=== PATIENT | male | born 1935 | race Caucasian/White ===

== ENCOUNTER 2016-10-02 18:10 | Observation (INO) ==
[2016-10-02 19:24] LABS: Basophils % 0.2 %; Eosinophils % 0.2 %; Hematocrit 30.4 % (37.5-50.1); Hemoglobin 9.9 g/dL (12.9-16.9); Immature Granulocytes % 0.4 % (0-4); Lymphocytes % 9.2 %; Mean Corpuscular HGB Conc 32.6 g/dL (31.6-35.5); Mean Corpuscular Volume 86.1 fL (83.0-100.0); Mean Platelet Volume 10.7 fL (9.4-12.4); Monocytes # 0.9 K/mcL (0.0-1.3); Monocytes % 8.4 %; Neutrophils # 9.1 K/mcL (1.6-8.9); Platelet Count 187 K/mcL (140-400); Red Blood Count 3.53 M/mcL (4.19-5.50); Red Cell Distribution Width 13.1 % (11.5-14.5); Segmented Neutrophils % 81.6 %
[2016-10-02 19:26] LABS: INR 1.2; Prothrombin Time 13.4 Seconds (9.4-12.1)
[2016-10-02 19:28] LABS: Activated Partial Thrombo Time 32.2 Seconds (26.0-36.0)
[2016-10-02 19:31] LABS: Calcium 8.9 mg/dL (8.6-10.8); Potassium 4.6 mEq/L (3.5-4.5)
--- NOTE | 2016-10-02 20:11 | Emergency Department Note ---
Disposition Clinical Impression: Atrial flutter, paroxysmal Dyspnea Qualifiers: Dyspnea type: unspecified Qualified Code(s): R06.00 - Dyspnea, unspecified CHF (congestive heart failure) Qualifiers: Congestive heart failure type: unspecified congestive heart failure type Congestive heart failure chronicity: unspecified congestive heart failure chronicity Qualified Code(s): I50.9 - Heart failure, unspecified Disposition: Admitted As Inpatient Condition: Good Referrals: Jamie Glynn MD [Primary Care Provider] - Forms: ED Satisfaction Letter SOB HPI - General Chief Complaint: ED Shortness of Breath/Dyspnea Stated Complaint: MUNA Time Seen by Provider: 10/02/16 18:57 Source: patient Limitations: no limitations Nursing Notes Reviewed: Yes Vital Signs Reviewed: Yes - History of Present Illness Pt Subjective Complaint: shortness of breath Onset (ago): hour(s) (10) Context: occurred during exertion Severity: moderate Consistency/Duration: intermittent Improves with: rest Worsens with: exertion Known history of: other (Paroxysmal atrial flutter and coronary artery disease) Associated symptoms: Denies: chest pain, fever, cough, lower extremity pain, nausea/vomiting Treatment prior to arrival: none Cough present: No - Related Data Home Medications Medication Instructions Recorded Confirmed Cholecalciferol (D-3) [Vitamin D] 1,000 unit PO DAILY 03/03/16 03/04/16 Cyanocobalamin (Vitamin B-12) 1,000 mcg PO DAILY 03/03/16 03/04/16 [Vitamin B-12] Losartan Potassium [Cozaar] 100 mg PO DAILY 03/03/16 03/04/16 Metoprolol [Lopressor] 100 mg PO BID 03/03/16 03/04/16 Multivitamin [Multi-Day Vitamins] 1 each PO DAILY 03/03/16 03/04/16 Metformin HCl [Metformin HCl ER] 1,000 mg PO BIDWM 03/04/16 03/04/16 amLODIPine [Norvasc] 5 mg PO DAILY 03/04/16 03/04/16 Previous Rx's Medication Instructions Recorded Aspirin 81 mg PO DAILY #30 tab.chew 03/07/16 Atorvastatin [Lipitor] 40 mg PO HS #30 tablet 03/07/16 Allergies Allergy/AdvReac Type Severity Reaction Status Date / Time No Known Allergies Allergy Verified 10/02/16 18:23 All systems ED: reviewed and negative except as stated. Constitutional: Denies: fever, chills Cardiovascular: Denies: orthopnea, edema, syncope Past Medical History - Past Medical History Source: patient, old records reviewed, nursing notes reviewed Medical history: Reports: coronary artery disease, diabetes, hyperlipidemia, hypertension, kidney stones, renal disease Surgical history: Reports: coronary bypass (CABG) (1997), orthopedic, other ( Cervical fusion status post trauma) Psychiatric history: Reports: no psych history - Social History Smoking Status: Never smoker Alcohol use: Reports: none Drug use: Reports: none Physical Exam - General Limitations: no limitations General appearance: alert, in no apparent distress - Head Head exam: atraumatic, normocephalic, normal inspection - Eye Eye exam: Present: normal appearance, PERRL, EOMI - Expanded Eye Exam Pupils: Left: reactive - ENT ENT exam: normal exam, normal oropharynx, mucous membranes moist - Expanded ENT Exam External ear exam: Present: normal external inspection Mouth exam: Present: normal external inspection Teeth exam: Present: normal inspection Throat exam: Present: normal inspection - Neck Neck exam: Present: normal inspection, full ROM, trachea midline - Chest Chest inspection: Present: normal inspection, symmetric chest wall rise - Respiratory Respiratory exam: Present: normal lung sounds bilaterally - Cardiovascular Cardiovascular exam: Present: regular rate, normal rhythm, normal heart sounds - Abdominal Exam Abdominal exam: Present: soft, Non-Tender. Absent: tenderness, distention, guarding, rebound, rigidity - Extremities Exam Extremities exam: Present: normal inspection, full ROM. Absent: tenderness, pedal edema - Expanded Upper Extremity Exam Shoulder exam: Present: normal inspection, full ROM Arm exam: Present: normal inspection, full ROM Elbow exam: Present: normal inspection, full ROM Forearm/Wrist exam: Present: normal inspection, full ROM Hand exam: Present: normal inspection, full ROM Vascular exam: Normal: capillary refill, radial pulse - Expanded Lower Extremity Exam Hip/Pelvis exam: Present: normal inspection, full ROM Upper leg exam: Present: normal inspection, full ROM Knee exam: Present: normal inspection, full ROM Lower leg exam: Present: normal inspection, full ROM Ankle exam: Present: normal inspection, full ROM Foot/toe exam: Present: normal inspection, full ROM Neurovascular/Tendon exam: Absent: motor deficit, sensory deficit, tendon deficit - Back Exam Back exam: Present: normal inspection, full ROM. Absent: tenderness - Neurological Exam Neurological exam: Present: alert, oriented X3 - Expanded Neurological Exam Patient oriented to: Present: person, place, time Coma Scale Eye Opening: Spontaneous Coma Scale Motor Response: Obeys Commands Coma Scale Verbal Response: Oriented Coma Scale Total: 15 - Psychiatric Psychiatric exam: Present: normal affect, normal mood - Skin Skin exam: Present: warm, dry, intact, normal color Course Vital Signs Temperature 98.4 F 10/02/16 18:21 Pulse Rate 80 10/02/16 18:21 Respiratory Rate 18 10/02/16 18:21 Blood Pressure 190/79 10/02/16 18:21 O2 Sat by Pulse Oximetry 94 10/02/16 18:21 Temperature 98.4 F 10/02/16 18:21 Pulse Rate 76 10/02/16 19:33 Respiratory Rate 18 10/02/16 18:21 Blood Pressure 168/70 10/02/16 19:33 O2 Sat by Pulse Oximetry 96 10/02/16 19:33 Oxygen Delivery Oxygen Delivery Room Air Shortness of Breath/Dyspnea - [facility] Narrative Medical decision making narrative: She is asymptomatic and is not hypoxic at rest speaks in full sentences. I reviewed all of his old records he does have a history of moderate severe pulmonary hypertension, BNP is elevated chest x-ray shows some mild pulmonary congestion. He has a mildly elevated d-dimer for his age but no signs of lower extremity DVT no recent travel history surgical history or prolonged immobilization. He also does not have a prior history of DVT. Will be admitted to the hospital service for further workup we did give him an aspirin in the ER. - Differential Diagnosis Likely: congestive heart failure, pneumonia, asthma with exacerbation, pneumothorax, arrhythmia - Lab Data Result diagrams: 10/02/16 19:11 10/02/16 19:11 Lab Results 10/02/16 10/02/16 10/02/16 Range/Units 19:11 19:11 19:11 WBC 11.1 (4.3-11.1) K/mcL RBC 3.53 L (4.19-5.50) M/mcL Hgb 9.9 L (12.9-16.9) g/dL Hct 30.4 L (37.5-50.1) % MCV 86.1 (83.0-100.0) fL MCH 28.0 (28.0-33.3) pg MCHC 32.6 (31.6-35.5) g/dL RDW 13.1 (11.5-14.5) % Plt Count 187 (140-400) K/mcL MPV 10.7 (9.4-12.4) fL Immature Gran % 0.4 (0-4) % Seg Neutrophils % 81.6 % Lymphocytes % 9.2 % Monocytes % 8.4 % Eosinophils % 0.2 % Basophils % 0.2 % Neutrophils # 9.1 H (1.6-8.9) K/mcL Lymphocytes # 1.0 (0.6-4.6) K/mcL Monocytes # 0.9 (0.0-1.3) K/mcL Eosinophils # 0.0 (0.0-0.6) K/mcL Basophils # 0.0 (0.0-0.2) K/mcL PT 13.4 H (9.4-12.1) Seconds INR 1.2 APTT 32.2 (26.0-36.0) Seconds D-Dimer 1006 H (0-500) ng/mLFEU Sodium 141 (136-145) mEq/L Potassium 4.6 H (3.5-4.5) mEq/L Chloride 111 H (98-109) mEq/L Carbon Dioxide 19 (19-29) mEq/L BUN 33 H (8-26) mg/dL Creatinine 2.07 H (0.72-1.25) mg/dL Est GFR ( Amer) 37 L (> 60) Est GFR (Non-Af Amer) 31 L (> 60) BUN/Creatinine Ratio 16 (6-26) Glucose 179 H (70-99) mg/dL Calculated Osmolality 304 H (280-300) Calcium 8.9 (8.6-10.8) mg/dL Troponin I (0-0.03) ng/mL B-Natriuretic Peptide (0-100) pg/mL 10/02/16 10/02/16 Range/Units 19:11 19:11 WBC (4.3-11.1) K/mcL RBC (4.19-5.50) M/mcL Hgb (12.9-16.9) g/dL Hct (37.5-50.1) % MCV (83.0-100.0) fL MCH (28.0-33.3) pg MCHC (31.6-35.5) g/dL RDW (11.5-14.5) % Plt Count (140-400) K/mcL MPV (9.4-12.4) fL Immature Gran % (0-4) % Seg Neutrophils % % Lymphocytes % % Monocytes % % Eosinophils % % Basophils % % Neutrophils # (1.6-8.9) K/mcL Lymphocytes # (0.6-4.6) K/mcL Monocytes # (0.0-1.3) K/mcL Eosinophils # (0.0-0.6) K/mcL Basophils # (0.0-0.2) K/mcL PT (9.4-12.1) Seconds INR APTT (26.0-36.0) Seconds D-Dimer (0-500) ng/mLFEU Sodium (136-145) mEq/L Potassium (3.5-4.5) mEq/L Chloride (98-109) mEq/L Carbon Dioxide (19-29) mEq/L BUN (8-26) mg/dL Creatinine (0.72-1.25) mg/dL Est GFR ( Amer) (> 60) Est GFR (Non-Af Amer) (> 60) BUN/Creatinine Ratio (6-26) Glucose (70-99) mg/dL Calculated Osmolality (280-300) Calcium (8.6-10.8) mg/dL Troponin I 0.02 (0-0.03) ng/mL B-Natriuretic Peptide 510 H (0-100) pg/mL - Radiology Data Radiology results reviewed: Yes I reviewed the patient's radiology results. - EKG Data EKG attestation: Yes I reviewed and interpreted this EKG. Rate: Reports: normal Rhythm: Reports: A. flutter [place]/QRS: Reports: normal Interpretation: Reports: nonspecific ST-T wave changes
[2016-10-02] MEDS ORDERED: Aspirin 81 MG TAB.CHEW PO ONE (20:24)
--- NOTE | 2016-10-03 02:25 | Internal Med History&Physical ---
Date of Encounter: 10/03/16 Time of Encounter: 01:00 Assessment and Plan (1) Atrial flutter, paroxysmal Current visit: Yes Status: Acute Pt possibly had episode of rapid ventricular response prior to this presentation. TSH was normal in february 2016. CHADS2 score is 4 and I think pt would benifit from chronic anticoagulation to prevent strokes. Will consult rules examiner for further advice. Cardiac monitoring. (2) CHF (congestive heart failure) Current visit: Yes Status: Acute BNP is elevated (Pt has CKD). Treat with IV lasix Qualifiers: Congestive heart failure type: diastolic Congestive heart failure chronicity: acute Qualified Code(s): I50.31 - Acute diastolic (congestive) heart failure (3) CAD (coronary artery disease) Current visit: Yes Status: Chronic Continue home medications Qualifiers: Coronary Disease-Associated Artery/Lesion type: [place] artery [place] vs. transplanted heart: [place] heart Associated angina: without angina Qualified Code(s): I25.10 - Atherosclerotic heart disease of [place] coronary artery without angina pectoris (4) CKD (chronic kidney disease) stage 3, GFR 30-59 ml/min Current visit: Yes Status: Chronic Monitor renal function (5) Diabetes mellitus Current visit: Yes Status: Chronic D/C metformin. Start sliding scale insulin Qualifiers: Diabetes mellitus type: type 2 Diabetes mellitus complication status: with kidney complications Diabetes mellitus complication detail: with chronic kidney disease Diabetes mellitus vermin exterminator insulin use: without assisted use Chronic kidney disease stage: stage 3 (moderate) Qualified Code(s): E11.22 - Type 2 diabetes mellitus with diabetic chronic kidney disease; N18.3 - Chronic kidney disease, stage 3 (moderate) (6) Normocytic anemia Current visit: Yes Status: Chronic Recent iron studies were suggestive of anemia of chronic disease. H&H stable. Check fecal occult blood. Monitor Internal Medicine - H&P: HPI Chief complaint: Shortness of breath Admitted From: Emergency Dept Plans for Post Hospital Care: Home History of present illness: Mr. Romeo is a 81 year old male with history of paroxysmal atrial flutter not on any anticoagulation (anticoagulation was considered, pending anemia work-up) , coronary artery disease status post CABG about 20 years ago; Echocardiogram done in February 2016 showed LVEF of 60-65%; atypical septal motion consistent with postoperative status; moderate to severe pulmonary hypertension. He presents to the emergency department, with history of sudden onset heart fluttering / palpitations (his could not count the pulse and apparently BP was also high), associated with shortness of breath. He denies consuming caffeine, smoking or alcohol use. He denies chest pain, cough/expectoration, abdominal pain, dysuria, hematuria, bowel problems, fever, chills. He was evaluated in the emergency department and the chest x-ray showed pulmonary vascular congestion and EKG showed atrial flutter. He is admitted to the hospitalist service for further workup and management. Past Med Surg Social Fam HX - Past Medical History Medical history: coronary artery disease, diabetes, hyperlipidemia, hypertension , kidney stones, renal disease Psychiatric history: no psych history - Past Surgical History Surgical History: coronary bypass (CABG), orthopedic, other - Social History Smoking Status: Never smoker Alcohol use: none Drug use: none - Family History Mother Living Status: Hx Family Endocrine Disorder: Yes (Diabetes) Brother Hx Family Cardiac Disorders: Yes (5 open heart surgeries) Internal Medicine - H&P: Meds Losartan Potassium [Cozaar] 100 mg PO DAILY 03/03/16 [History] Metoprolol [Lopressor] 100 mg PO BID 03/03/16 [History] Metformin HCl [Metformin HCl ER] 1,000 mg PO BIDWM 03/04/16 [History] amLODIPine [Norvasc] 5 mg PO DAILY 03/04/16 [History] Atorvastatin [Lipitor] 40 mg PO HS #30 tablet 03/07/16 [Rx] ALPRAZolam [Xanax 0.25 MG Tablet] 0.25 mg PO HS PRN 10/02/16 [History] Aspirin 325 mg PO DAILY 10/02/16 [History] Nitroglycerin [Nitrostat] 0.4 mg SL Q5M PRN 10/02/16 [History] Allergies No Known Allergies Allergy (Verified 10/02/16 18:23) All Systems PM: A 10-system review of systems was performed and is negative for pertinent findings except as documented above in the HPI. - Constitutional Vitals: Temp Pulse Resp BP Pulse Ox 99.1 F 79 18 168/66 94 10/02/16 22:25 10/02/16 22:25 10/02/16 22:25 10/02/16 22:25 10/02/16 22:25 Exam: General: Not in acute distress at the time of my evaluation HEENT: Oral mucosa is moist. No conjunctival palor or scleral icterus Neck: No obvious neck swellings Lungs: Bilateral basal crackles Cardiac: Irregular rhythm. No significant murmurs Abdomen: Soft, non tender. Bowel sounds present Genitourinary: No medeiros catheter Neurological: Alert and oriented. No gross localizing deficits Psych: Not aggressive or agitated Extremities: Minimal leg edema Skin: No generalized rash Internal Med - H&P Results - Labs CBC & Chem 7: 10/02/16 19:11 10/03/16 05:04 - EKG Data -: EKG Interpreted by Myself - EKG Data EKG comments: Atrial flutter with heart rate of 80 10/03/16 07:04 - Impressions ITS Impressions Chest X-Ray 10/02/16 18:58 IMPRESSION: Pulmonary vascular congestion. D/ / Dno Saini MD / Don Saini MD Interpreting Provider: Don Saini MD
[2016-10-03] MEDS ORDERED: Naloxone 0.4 MG/ML INJ IVP PRN (02:27)
[2016-10-03] MEDS: *HR* Heparin 5,000 UNIT/ML VIAL SQ SCH ×3 (05:00→21:21)
[2016-10-03] MEDS: Furosemide 20 MG/2 ML VIAL IVP SCH ×2 (05:00→07:53)
[2016-10-03 05:52] LABS: Calcium 8.7 mg/dL (8.6-10.8); Magnesium 1.2 mg/dL (1.6-2.6); Potassium 4.2 mEq/L (3.5-4.5)
[2016-10-03] MEDS ORDERED: Magnesium Sulfate 2 GM in D5% in Water 100 ML IVPB ONE (06:24)
[2016-10-03] MEDS ORDERED: *HR* Dextrose 50 % in Water (Syg) 50 ML SYRINGE IVP PRN (07:08)
[2016-10-03] MEDS ORDERED: D5% in Water 1,000 ML IVC PRN (07:08)
[2016-10-03] MEDS ORDERED: Dextrose Gel 15 GM PO PRN ×2 (07:08)
[2016-10-03] MEDS ORDERED: Nitroglycerin 0.4 MG TAB.SUBL SL PRN (07:13)
[2016-10-03] MEDS ORDERED: ALPRAZolam 0.25 MG TABLET PO PRN (07:13)
[2016-10-03] MEDS: Insulin LISPRO 300 UNITS/3 ML VIAL SQ SCH ×3 (07:53→17:02)
[2016-10-03] MEDS: Metoprolol 100 MG TABLET PO SCH ×2 (07:58→21:22)
[2016-10-03] MEDS ORDERED: Aspirin 325 MG TABLET PO SCH (09:00)
[2016-10-03] MEDS: Magnesium Oxide 400 MG TABLET PO SCH ×2 (10:14→21:22)
--- NOTE | 2016-10-03 11:16 | Cardiology Consult Note ---
Date of Encounter: 10/03/16 Time of Encounter: 09:00 Assessment and Plan (1) Atrial flutter, paroxysmal Current Visit: Yes Status: Chronic Per cardiology: -Known history paroxysmal atrial flutter. Admits to fluttering feeling on admission, denies current fluttering. -Currently rate controlled. -On beta tete and full dose aspirin. -[id number] score 6 (age, HTN, CHF, vascular history, DM). Would recommend moth exterminator anticoagulation, however patient has been anemic and has refused GI work up for anemia. Educated patient that he is at a greatly increased risk of stroke and needs moth exterminator anticoagulation after GI anemia work up. Patient states understanding. Patient states he does not want GI work up and is not sure if he would even take longterm anticoagulation. Patient stated "I am 81, I 'm old enough to ." Discussed and reviewed with who states he would discuss with patient also. Pateint states he will think about recommendations and make a decision regarding anemia work up and moth exterminator anticoagulation. -Will continue to monitor. (2) CKD (chronic kidney disease) stage 3, GFR 30-59 ml/min Current Visit: Yes Status: Chronic Per cardiology: -Known CKD. -Creatinine about baseline. -Management per primary service. (3) Anemia Current Visit: No Status: Chronic Per cardiology: -KNown anemia. -Hemoglobin 9.9, about recent baseline. -Was recommended to have endoscopies performed for further work up, however patient refused. -Will discuss further with patient regarding anemia work up. -Management per primary service. Qualifiers: Anemia type: unspecified type Qualified Code(s): D64.9 - Anemia, unspecified (4) CAD (coronary artery disease) Current Visit: Yes Status: Chronic Per cardiology: -Known CAD with CABG 1996. -Denies chest pain, fatigue, or shortness of breath. -On asa, statin, beta tete. -Troponin negative. -ECG with no ischemic changes. -Echo 02/2016 with LVEF 60-65%, mild mitral regurgitation, mild tricuspid regurgitation, moderate-severe pulmonary hypertension, all wall segements with normal motion. -Will continue to monitor. Qualifiers: Coronary Disease-Associated Artery/Lesion type: [place] artery [place] vs. transplanted heart: [place] heart Associated angina: without angina Qualified Code(s): I25.10 - Atherosclerotic heart disease of [place] coronary artery without angina pectoris (5) Hypertension Current Visit: Yes Status: Chronic Per cardiology: -KNown hypertension. -ON beta tete. -BPs had been 170s systolic, most recent BP 140s systolic. -Will continue to monitor. -Can consider addition of another anti-hypertensive for better BP control. Qualifiers: Hypertension type: essential hypertension Qualified Code(s): I10 - Essential (primary) hypertension Discussion w patient/family: The assessment and plan as outlined above was discussed with the patient who expressed understanding and agreement. All questions were answered. Thank you for involving us in the care of your patient. Please call with any questions. Discussed and reviewed with . History of Present Illness Consult date: 10/03/16 Requesting physician: Lauren Valdez Consult reason: atrial fibrillation Chief complaint: palpitations History of present illness: Mr. Romeo is a 81 year old male with a relevant past medical history of CKD, CAD, hyperlipidemia, DM, HTN, CABG 1996, anemia, paroxysmal atrial flutter. Patient was seen and evaluated in hospital March 2016 for atrial flutter. Patient with anemia at that time and GI work up was recommended prior to initiation of moth exterminator anticoagulation. Patient states he has seen surgeon for endoscopies, however he declined to have them performed. Patient states he only takes a full dose aspriin. Patient states he presented to [facility] due to "fluttering in chest." Patient denies chest pain, shrotness of breath, or increased fatigue. Patient denies current fluttering. Past Med Surg Social Fam HX - Past Medical History Attestation: Yes The following information was validated with the patient. Source: patient, old records reviewed Medical history: coronary artery disease, diabetes, hyperlipidemia, hypertension , kidney stones, renal disease Psychiatric history: no psych history - Past Surgical History Surgical History: coronary bypass (CABG), orthopedic, other - Social History Smoking Status: Never smoker Alcohol use: none Drug use: none - Family History Mother Living Status: Hx Family Endocrine Disorder: Yes (Diabetes) Brother Hx Family Cardiac Disorders: Yes (5 open heart surgeries) Medications and Allergies Losartan Potassium [Cozaar] 100 mg PO DAILY 03/03/16 [History] Metoprolol [Lopressor] 100 mg PO BID 03/03/16 [History] Metformin HCl [Metformin HCl ER] 1,000 mg PO BIDWM 03/04/16 [History] amLODIPine [Norvasc] 5 mg PO DAILY 03/04/16 [History] Atorvastatin [Lipitor] 40 mg PO HS #30 tablet 03/07/16 [Rx] ALPRAZolam [Xanax 0.25 MG Tablet] 0.25 mg PO HS PRN 10/02/16 [History] Aspirin 325 mg PO DAILY 10/02/16 [History] Nitroglycerin [Nitrostat] 0.4 mg SL Q5M PRN 10/02/16 [History] Allergies No Known Allergies Allergy (Verified 10/02/16 18:23) All Systems Review: A 10-system review of systems was performed and is negative for pertinent findings except as documented above in the HPI. - Cardiovascular Cardiovascular: as per HPI, irregular heart rhythm Physical Examination Vital Signs, Last 4 Hours Temp Pulse Resp BP Pulse Ox 10/03/16 10:28 98.1 F 75 18 142/57 95 10/03/16 07:30 95 10/03/16 07:18 99.4 F 88 18 173/77 95 General: Conversant, No Apparent Distress HEENT: Atraumatic, Normocephaly, Mucus Membranes Moist Neck: No JVD, Normal carotid pulses Cardiac: Other (Irregularly, irregular) Lungs: Normal Breath Sounds, No Wheeze, Rales, Rhonchi Neuro: Alert and responsive, No focal deficits noted Abdomen: Soft, Non-Tender Skin: No rashes noted on visualized skin Musculoskeletal: No Chest Wall Tenderness Extremities: No Clubbing, No Cyanosis, No Edema, Normal Pulses Results 10/02/16 19:11 10/03/16 05:04 Lab Results Impressions Chest X-Ray 10/02/16 18:58 IMPRESSION: Pulmonary vascular congestion. D/ / Don Saini MD / Don Sanii MD Interpreting Provider: Don Saini MD Active Medications Alprazolam (Xanax) 0.25 mg PO HS PRN; Protocol PRN Reason: Sleep Stop: 04/04/17 07:14 Aspirin (Aspirin Ec) 325 mg PO DAILY [facility] Stop: 04/05/17 09:01 Atorvastatin Calcium (Lipitor) 40 mg PO HS [facility] Stop: 04/04/17 21:01 Dextrose/Water (Dextrose 50% (Syg)) 25 ml IVP AD PRN PRN Reason: Hypoglycemia Stop: 04/04/17 07:09 Furosemide (Lasix) 20 mg IVP DAILY [facility] Stop: 04/04/17 06:01 Last Admin: 10/03/16 07:53 Dose: 20 mg Glucagon (Glucagen) 1 mg IM ONCE PRN PRN Reason: Hypoglycemia Stop: 04/04/17 07:09 Glucose (Gluctose) 15 gm PO ONCE PRN PRN Reason: Hypoglycemia Stop: 04/04/17 07:09 Glucose (Gluctose) 30 gm PO ONCE PRN PRN Reason: Hypoglycemia Stop: 04/04/17 07:09 Heparin Sodium (Porcine) (Heparin) 5,000 unit SQ Q8H [facility] Stop: 04/04/17 06:01 Last Admin: 10/03/16 05:00 Dose: 5,000 unit Dextrose (Dextrose 5%) 1,000 mls @ 100 mls/hr IVC .Q10H PRN PRN Reason: HYPOGLYCEMIA Stop: 04/04/17 07:09 Insulin Human Lispro (Humalog) 0 units SQ HS [facility] PRN Reason: Protocol Stop: 04/04/17 21:01 Insulin Human Lispro (Humalog) 0 units SQ TIDAC [facility] PRN Reason: Protocol Stop: 04/04/17 07:31 Last Admin: 10/03/16 07:53 Dose: 2 units Magnesium Oxide (Mag-Ox) 400 mg PO BID [facility] PRN Reason: Protocol Stop: 04/04/17 09:46 Last Admin: 10/03/16 10:14 Dose: 400 mg Metoprolol Tartrate (Lopressor) 100 mg PO BID [facility] Stop: 04/04/17 09:01 Last Admin: 10/03/16 07:58 Dose: 100 mg Naloxone HCl (Narcan) 0.4 mg IVP Q2MIN PRN PRN Reason: Opioid Reversal Stop: 04/04/17 02:28 Nitroglycerin (Nitroglycerin) 0.4 mg SL Q5M PRN PRN Reason: Chest Pain Stop: 04/04/17 07:14 Laboratory Tests 10/02/16 10/02/16 10/02/16 19:11 19:11 19:11 Hgb 9.9 L Potassium Creatinine Magnesium Troponin I 0.02 B-Natriuretic Peptide 510 H 10/03/16 05:04 Hgb Potassium 4.2 Creatinine 1.89 H Magnesium 1.2 L Troponin I B-Natriuretic Peptide - Imaging and Cardiology Chest Xray: report reviewed Echo: report reviewed - EKG Interpretation EKG results cardiology: personally reviewed (ECG reviewed with atrial flutter, HR 80.), other (Telemetry reviewed with average HR previous 12 hours noted to be 83, atrial flutter. PVCs noted.) Consult Discharge Plan - Plan Referrals: Jamie Glynn MD [Primary Care Provider] - 10/17/16 3:20 pm (Follow up with [facility])
--- NOTE | 2016-10-03 18:03 | Internal Med Progress Note ---
Date of Encounter: 10/03/16 Time of Encounter: 10:00 - Assessment and plan (1) Hypomagnesemia Current Visit: Yes Status: Acute Assessment and plan: We will supplement magnesium via IV and by mouth, monitor levels tomorrow in a.m. Continue with telemetry monitoring. (2) Atrial flutter, paroxysmal Current Visit: Yes Status: Chronic Assessment and plan: Cardiology evaluation noted, highly appreciated. (3) CAD (coronary artery disease) Current Visit: Yes Status: Chronic Qualifiers: Coronary Disease-Associated Artery/Lesion type: [place] artery [place] vs. transplanted heart: [place] heart Associated angina: without angina Qualified Code(s): I25.10 - Atherosclerotic heart disease of [place] coronary artery without angina pectoris (4) Diabetes mellitus Current Visit: Yes Status: Chronic Qualifiers: Diabetes mellitus type: type 2 Diabetes mellitus complication status: with kidney complications Diabetes mellitus complication detail: with chronic kidney disease Diabetes mellitus fpc insulin use: without fpc use Chronic kidney disease stage: stage 3 (moderate) Qualified Code(s): E11.22 - Type 2 diabetes mellitus with diabetic chronic kidney disease; N18.3 - Chronic kidney disease, stage 3 (moderate) (5) Hypertension Current Visit: Yes Status: Chronic Qualifiers: Hypertension type: essential hypertension Qualified Code(s): I10 - Essential (primary) hypertension (6) Normocytic anemia Current Visit: Yes Status: Chronic Assessment and plan: will monitor hemoglobin, transfuse when necessary, possible discharge tomorrow in a.m. (7) DVT prophylaxis Current Visit: No Status: Acute - Subjective Interval history: The patient was seen and examined in rounds. He has a known history of arrhythmia, not on anticoagulation. No fever, no chest pain, no respiratory distress during this encounter. - Constitutional Vitals: Temp Pulse Resp BP Pulse Ox 99.7 F H 75 16 168/74 95 10/03/16 16:49 10/03/16 16:49 10/03/16 16:49 10/03/16 16:49 10/03/16 16:49 General appearance: Present: cooperative, A&O X 3 - Head Head exam: Present: atraumatic, normocephalic - Eye Eye exam: Present: PERRL, conjuntiva pink, sclera anicteric Pupils: Present: PERRL - Neck Neck exam general surgery: Present: supple, trachea midline. Absent: lymphadenopathy - Respiratory Respiratory exam: Present: CTAB. Absent: accessory muscle use, rales, rhonchi, wheezes - Cardiovascular Cardiovascular exam: Present: RRR, +S1, +S2. Absent: diastolic murmur, gallop, rubs, systolic murmur - GI/Abdominal GI/Abdominal exam: Present: normal bowel sounds, soft, no peritoneal signs. Absent: distended, tenderness - Extremities Exam Extremities exam: Present: warm, radial pulses palpable and symetrical. Absent : calf tenderness, cyanotic, pedal edema - Neurological Exam Neurological exam: Present: CN II-XII intact, oriented X3, no focal deficits. Absent: pronater drift, facial droop, speech deficit - Skin Skin exam: Present: dry, intact Internal Medicine: Result - Labs CBC & Chem 7: 10/02/16 19:11 10/03/16 05:04 Labs: BMP 10/03/16 05:04 Sodium 142 Potassium 4.2 Chloride 111 H Carbon Dioxide 21 BUN 32 H Creatinine 1.89 H Glucose 151 H Calcium 8.7 - ABG Interpretation ABG results: PT/INR, D-dimer PT 13.4 Seconds (9.4-12.1) H 10/02/16 19:11 D-Dimer 1006 ng/mLFEU (0-500) H 10/02/16 19:11 Consult Discharge Plan - Plan Referrals: Jamie Glynn MD [Primary Care Provider] - 10/17/16 3:20 pm (Follow up with [facility])
[2016-10-03] MEDS ORDERED: Magnesium Sulfate 1 GM in D5% in Water 100 ML IVPB ONE (21:00)
[2016-10-03] MEDS ORDERED: Insulin LISPRO 300 UNITS/3 ML VIAL SQ SCH (21:00)
[2016-10-04 04:55] LABS: Basophils % 0.3 %; Eosinophils # 0.2 K/mcL (0.0-0.6); Eosinophils % 3.1 %; Hematocrit 27.8 % (37.5-50.1); Hemoglobin 9.4 g/dL (12.9-16.9); Immature Granulocytes % 0.3 % (0-4); Lymphocytes # 1.3 K/mcL (0.6-4.6); Lymphocytes % 19.3 %; Mean Corpuscular HGB Conc 33.8 g/dL (31.6-35.5); Mean Corpuscular Hemoglobin 28.7 pg (28.0-33.3); Mean Platelet Volume 11.3 fL (9.4-12.4); Monocytes # 0.6 K/mcL (0.0-1.3); Monocytes % 8.6 %; Neutrophils # 4.6 K/mcL (1.6-8.9); Platelet Count 183 K/mcL (140-400); Red Blood Count 3.27 M/mcL (4.19-5.50); Red Cell Distribution Width 12.8 % (11.5-14.5); Segmented Neutrophils % 68.4 %
[2016-10-04 05:04] LABS: Potassium 4.3 mEq/L (3.5-4.5)
[2016-10-04] MEDS: *HR* Heparin 5,000 UNIT/ML VIAL SQ SCH (06:22)
[2016-10-04] MEDS: Magnesium Oxide 400 MG TABLET PO SCH (07:55)
[2016-10-04] MEDS: Insulin LISPRO 300 UNITS/3 ML VIAL SQ SCH ×2 (07:55→12:24)
[2016-10-04] MEDS: Metoprolol 100 MG TABLET PO SCH (07:55)
[2016-10-04] MEDS: Furosemide 20 MG/2 ML VIAL IVP SCH (08:15)
[2016-10-04] MEDS ORDERED: Aspirin Enteric Coated 325 MG Tablet PO SCH (09:00)
--- NOTE | 2016-10-04 11:13 | Discharge Summary ---
Date of Encounter: 10/04/16 Time of Encounter: 11:10 - Discharge Diagnosis (1) Hypomagnesemia Priority: Secondary Status: Acute (2) Atrial flutter, paroxysmal Priority: Primary Status: Chronic (3) CAD (coronary artery disease) Priority: Secondary Status: Chronic Qualifiers: Coronary Disease-Associated Artery/Lesion type: [place] artery [place] vs. transplanted heart: [place] heart Associated angina: without angina Qualified Code(s): I25.10 - Atherosclerotic heart disease of [place] coronary artery without angina pectoris (4) Diabetes mellitus Priority: Secondary Status: Chronic Qualifiers: Diabetes mellitus type: type 2 Diabetes mellitus complication status: with kidney complications Diabetes mellitus complication detail: with chronic kidney disease Diabetes mellitus intermediate frame tender insulin use: without intermediate frame tender use Chronic kidney disease stage: stage 3 (moderate) Qualified Code(s): E11.22 - Type 2 diabetes mellitus with diabetic chronic kidney disease; N18.3 - Chronic kidney disease, stage 3 (moderate) (5) Hypertension Priority: Secondary Status: Chronic Qualifiers: Hypertension type: essential hypertension Qualified Code(s): I10 - Essential (primary) hypertension (6) Normocytic anemia Priority: Secondary Status: Chronic (7) DVT prophylaxis Priority: Secondary Status: Acute - Discharge Medications Home Medications: Losartan Potassium [Cozaar] 100 mg PO DAILY 03/03/16 [History] Metoprolol [Lopressor] 100 mg PO BID 03/03/16 [History] Metformin HCl [Metformin HCl ER] 1,000 mg PO BIDWM 03/04/16 [History] amLODIPine [Norvasc] 5 mg PO DAILY 03/04/16 [History] Atorvastatin [Lipitor] 40 mg PO HS #30 tablet 03/07/16 [Rx] ALPRAZolam [Xanax 0.25 MG Tablet] 0.25 mg PO HS PRN 10/02/16 [History] Aspirin 325 mg PO DAILY 10/02/16 [History] Nitroglycerin [Nitrostat] 0.4 mg SL Q5M PRN 10/02/16 [History] Allergies/Adverse Reactions: Allergies No Known Allergies Allergy (Verified 10/02/16 18:23) Date of admission: 10/03/16 04:46 Primary care physician: Jamie Glynn, Discharging clinician: Serg Tran Anticipated date of discharge: 10/04/16 - Patient Status Disposition: Home, Self-Care Condition: Good Functional capacity at discharge: independent ambulation Overall status at discharge: patient is back to baseline - Discharge Instructions Follow Up With: Jamie Glynn MD [Primary Care Provider] - 10/17/16 3:20 pm (Follow up with [facility]) Additional Instructions: Follow-up with cardiology as outpatient. Follow-up with gastroenterology for endoscopic studies as outpatient. - Diet and Activity Activity: increase activity as tolerated Diet: advance to your usual diet Interval History: Mr. Romeo is a 81 year old male with history of paroxysmal atrial flutter not on any anticoagulation (anticoagulation was considered, pending anemia work-up) , coronary artery disease status post CABG about 20 years ago; Echocardiogram done in February 2016 showed LVEF of 60-65%; atypical septal motion consistent with postoperative status; moderate to severe pulmonary hypertension. He presents to the emergency department, with history of sudden onset heart fluttering / palpitations (his could not count the pulse and apparently BP was also high), associated with shortness of breath. He denies consuming caffeine, smoking or alcohol use. He denies chest pain, cough/expectoration, abdominal pain, dysuria, hematuria, bowel problems, fever, chills. He was evaluated in the emergency department and the chest x-ray showed pulmonary vascular congestion and EKG showed atrial flutter. He is admitted to the hospitalist service for further workup and management. Hospital course: Mr. Romeo is a 81 year old male admitted due to shortness of breath in the setting of a patient with history of a flutter, ventricular response controlled. He was evaluated by cardiology, he has anemia and has a pending workup with gastroenterology to rule out GI bleeding. The patient initially refused and was very reluctant to undergo GI workup, however the day he said he would be okay with that. He has been stable, his hemoglobin has been pretty much within the same limits when he initially came. He will follow up as outpatient with cardiology, will titrate to arrange follow-up with gastroenterology for further endoscopic evaluation. At this point will not start anticoagulation until we finish the evaluation for possible GI bleeding. He was explained about the plan, he verbally expressed understanding, will resume his home medications. He starts to vascular score is 6 weeks and his age , history of hypertension, CHF and diabetes, and history of vascular disease. The patient agrees with the plan of care. I discussed the case with him in detail. - Time Spent with Patient Total time spent providing and/or coordinating discharge services: - Constitutional Vitals: Temp Pulse Resp BP Pulse Ox 98.5 F 73 16 160/74 95 10/04/16 07:52 10/04/16 07:52 10/04/16 07:52 10/04/16 07:52 10/04/16 07:52 General appearance: Present: cooperative, A&O X 3 - Head Head exam: Present: atraumatic, normocephalic - Eye Eye exam: Present: PERRL, conjuntiva pink, sclera anicteric Pupils: Present: PERRL - Neck Neck exam general surgery: Present: supple, trachea midline. Absent: lymphadenopathy - Respiratory Respiratory exam: Present: CTAB. Absent: accessory muscle use, rales, rhonchi, wheezes - Cardiovascular Cardiovascular exam: Present: RRR, +S1, +S2. Absent: diastolic murmur, gallop, rubs, systolic murmur - GI/Abdominal GI/Abdominal exam: Present: normal bowel sounds, soft, no peritoneal signs. Absent: distended, tenderness - Extremities Exam Extremities exam: Present: warm, radial pulses palpable and symetrical. Absent : calf tenderness, cyanotic, pedal edema - Neurological Exam Neurological exam: Present: CN II-XII intact, oriented X3, no focal deficits. Absent: pronater drift, facial droop, speech deficit - Skin Skin exam: Present: dry, intact
[2016-10-04 11:54] VITALS: BP 139/88
--- NOTE | 2016-11-05 17:28 | Electrocardiograph Report ---
[address] [address] Test Date: 2016-10-02 Pat Name: Juan Romeo Department: 103 Room: 2A44 Gender: Application Security Developer: : [id number] Requested By: Eran Carroll Order Number: [id number] Reading MD: Marissa Fall Measurements Intervals [place] Rate: 80 P: TN: 0 QRS: 26 QRSD: 102 T: 38 QT: 357 QTc: 392 Interpretive Statements ATRIAL FLUTTER/TACHYCARDIA WITH ABERRANT CONDUCTION OR VENTRICULAR PREMATURE COMPLEXES NONSPECIFIC ST \T\ T-WAVE ABNORMALITY ABNORMAL RHYTHM ECG Electronically Signed On 11-05-2016 17:27:17 EDT by Marissa Fall
== END 2016-10-04 13:37 | disposition home or self-care (01) | DRG 308 ==
LOC: EMEROO 18:10 → 2ANU 18:10
PROVIDERS: ADMIT Internal Medicine; ATTEND Internal Medicine

== ENCOUNTER 2017-01-07 17:42 | Inpatient (IN) ==
[2017-01-07] MEDS ORDERED: Aspirin 325 MG TABLET PO ONE (19:44)
[2017-01-07] MEDS ORDERED: 0.9 % Sodium Chloride 1,000 ML IVC ONE (19:44)
[2017-01-07 20:05] LABS: Basophils % 0.3 %; Eosinophils % 0.1 %; Hematocrit 29.4 % (37.5-50.1); Hemoglobin 9.6 g/dL (12.9-16.9); Immature Granulocytes % 0.6 % (0-4); Lymphocytes # 1.2 K/mcL (0.6-4.6); Lymphocytes % 11.8 %; Mean Corpuscular HGB Conc 32.7 g/dL (31.6-35.5); Mean Corpuscular Volume 85.7 fL (83.0-100.0); Mean Platelet Volume 11.1 fL (9.4-12.4); Neutrophils # 8.1 K/mcL (1.6-8.9); Platelet Count 176 K/mcL (140-400); Red Blood Count 3.43 M/mcL (4.19-5.50); Red Cell Distribution Width 13.5 % (11.5-14.5); Segmented Neutrophils % 77.2 %
[2017-01-07 20:11] LABS: INR 1.3; Prothrombin Time 14.4 Seconds (9.4-12.1)
[2017-01-07 20:13] LABS: Activated Partial Thrombo Time 32.5 Seconds (26.0-36.0)
[2017-01-07 20:18] LABS: Calcium 9.3 mg/dL (8.6-10.8); Magnesium 1.4 mg/dL (1.6-2.6); Potassium 4.8 mEq/L (3.5-4.5)
[2017-01-07 20:41] LABS: Thyroid Stimulating Hormone 1.897 mcIU/mL (0.350-4.840)
--- NOTE | 2017-01-07 21:53 | Emergency Department Note ---
Disposition Clinical Impression: Palpitations, Exertional dyspnea, Chronic anemia Atrial flutter Qualifiers: Atrial flutter type: unspecified Qualified Code(s): I48.92 - Unspecified atrial flutter Chronic renal insufficiency Qualifiers: Chronic kidney disease stage: unspecified stage Qualified Code(s): N18.9 - Chronic kidney disease, unspecified Disposition: Admitted As Inpatient Condition: Good Referrals: Jamie Glynn MD [Primary Care Provider] - Forms: ED Satisfaction Letter Time of Disposition: 22:07 Arrhythmia/Palpitations HPI - General Chief Complaint: ED Arrhythmia/Palpitations Stated Complaint: MNUA, chest fluttering Time Seen by Provider: 01/07/17 19:43 Source: patient Mode of arrival: ambulatory Limitations: no limitations Nursing Notes Reviewed: Yes Vital Signs Reviewed: Yes - History of Present Illness HPI Narrative: Patient presents to emergency room with complaint of palpitations and exertional dyspnea. He said is progressively getting worse over the last several days. Denies any other symptoms complaints or trauma. Patient has a history of atrial fibrillation and is typically controlled. His felt his heart fluttering over the last several days and then decided to come in today because he said increased work of breathing. Denies any other traumatic injuries. He is currently not on any blood thinners Pt Subjective Complaint: palpitations Onset (ago): day(s) Duration: constant Severity: mild Arrhythmia History: atrial fibrillation Associated symptoms: Reports: shortness of breath - Related Data Home Medications Medication Instructions Recorded Confirmed Losartan Potassium [Cozaar] 100 mg PO DAILY 03/03/16 01/07/17 Metoprolol [Lopressor] 100 mg PO BID 03/03/16 01/07/17 Metformin HCl [Metformin HCl ER] 1,000 mg PO BIDWM 03/04/16 01/07/17 amLODIPine [Norvasc] 5 mg PO DAILY 03/04/16 01/07/17 Aspirin [Lo-Dose Aspirin EC] 81 mg PO DAILY 01/07/17 01/07/17 Cyanocobalamin (Vitamin B-12) 1,000 mcg PO QPM 01/07/17 01/07/17 [Vitamin B12] Ferrous Sulfate [Iron] 325 mg PO QPM 01/07/17 01/07/17 Folic Acid 0.4 mg PO QAM 01/07/17 01/07/17 Mv, Min #36/Iron,Carbonyl/FA 1 tab PO DAILY 01/07/17 01/07/17 [Geritol Complete Tablet] Previous Rx's Medication Instructions Recorded Atorvastatin [Lipitor] 40 mg PO HS #30 tablet 03/07/16 Allergies Allergy/AdvReac Type Severity Reaction Status Date / Time No Known Allergies Allergy Verified 10/02/16 18:23 All systems ED: reviewed and negative except as stated. Review of Systems: As Per HPI Constitutional: Denies: fever, chills Cardiovascular: Reports: palpitations. Denies: chest pain, dyspnea on exertion , orthopnea, edema Respiratory: Denies: cough, dyspnea, wheezes, hemoptysis Gastrointestinal: Denies: abdominal pain, nausea, vomiting, diarrhea Genitourinary: Denies: urgency, dysuria, frequency Musculoskeletal: Denies: back pain, neck pain Neurological: Denies: headache, weakness, numbness Psychiatric: Denies: anxiety Endocrine: Denies: fatigue Past Medical History - Past Medical History Attestation: Yes The following information was validated with the patient. Source: patient Medical history: Reports: atrial fibrillation, coronary artery disease, diabetes , hyperlipidemia, hypertension, kidney stones, renal disease Surgical history: Reports: coronary bypass (CABG), orthopedic, other Psychiatric history: Reports: no psych history - Social History Smoking Status: Never smoker Alcohol use: Reports: none Drug use: Reports: none Physical Exam - General Limitations: no limitations General appearance: alert - Head Head exam: atraumatic, normocephalic, normal inspection - Neck Neck exam: Present: normal inspection, full ROM, trachea midline - Chest Chest inspection: Present: normal inspection, symmetric chest wall rise. Absent : tenderness - Respiratory Respiratory exam: Present: normal lung sounds bilaterally. Absent: respiratory distress, wheezes, accessory muscle use - Cardiovascular Cardiovascular exam: Present: regular rate, normal rhythm, normal heart sounds - Abdominal Exam Abdominal exam: Present: soft, Non-Tender, normal bowel sounds. Absent: tenderness, distention, guarding, rebound, rigidity, Gutiérrez's sign, Rovsing's sign, tenderness at McBurney's Point - Extremities Exam Extremities exam: Present: normal inspection, full ROM, normal capillary refill. Absent: tenderness - Back Exam Back exam: Present: normal inspection, full ROM. Absent: tenderness - Neurological Exam Neurological exam: Present: alert, oriented X3, CN II-XII intact, normal gait - Skin Skin exam: Present: warm, dry, intact, normal color Course Course Narrative: Patient seen and examined the time of arrival. See history of present illness. 1-year-old male presents to emergency room complaining of exertional dyspnea. He has had these symptoms several times in the past when his A. fib is present. He has been seen and evaluated several times for this in the past. 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 Patient otherwise is in no distress at this point. Vital signs are reviewed patient is showing signs of sinus rhythm. Blood pressure and respirations are unlabored. Patient does not have any current conversational dyspnea. Physical exam shows patient is in no apparent distress lungs are clear heart is regular no signs of crackles or wheezing noted. Abdomen is soft nontender nondistended with no guarding or rigidity no peritoneal symptoms. Patient moves all 4 extremities without any difficulty pulses are intact. Cranial nerves III through XII are grossly intact at this time no signs of acute focal neurologic deficit. Patient does have pitting edema up to the midcalf at this time. No concern on physical exam for acute fluid overload this point. Patient is otherwise stable. Disposition will most likely be admission once the labs and imaging of the chest are completed. Patient has atrial flutter and A. fib 1 conduction at this time. Patient typically has paroxysmal A. fib and has normally had sinus rhythm prior to this. Patient will be seen and then disposition will be determined. Recommended admission on initial presentation. Obtain a moderate dementia process is completed. - Reevaluation(s) Reevaluation #1: Patient has negative chest x-ray fluid accumulation. There is chemistry panel does show elevated kidney function with elevated creatinine. His. The baseline at this time. He does have low magnesium. Will be provided with 1 g of magnesium and emergency room. His BNP is elevated but this appears to be about baseline for him. Patient will not be started on Lasix at this point secondary to chronic symptoms. Otherwise patient is in no specific distress at this point with stable atrial flutter. We will can do to monitor here. Patient was discussed with the on-call hospitalist Dr. nieves. We reviewed the presentation symptoms medical history. No other recommendations at this time. Patient will be admitted for physical examination and cardiac evaluation. Time: 22:05 Vital Signs Temperature 97.9 F 01/07/17 18:39 Pulse Rate 77 01/07/17 18:39 Respiratory Rate 18 01/07/17 18:39 Blood Pressure 162/68 01/07/17 18:39 O2 Sat by Pulse Oximetry 95 01/07/17 18:39 Temperature 97.9 F 01/07/17 18:39 Pulse Rate 73 01/07/17 21:13 Respiratory Rate 16 01/07/17 20:17 Blood Pressure 157/58 01/07/17 21:13 O2 Sat by Pulse Oximetry 96 01/07/17 21:13 Oxygen Delivery Oxygen Delivery Room Air Arrhythmia/Palpitations - MDM Narrative Medical decision making narrative: Atrial flutter, exertional dyspnea, chronic anemia, chronic renal insufficiency - Medical Records Medical records reviewed: Yes I reviewed the patient's medical records. - Lab Data Lab results reviewed: Yes I reviewed the patient's lab results. Result diagrams: 01/07/17 19:58 01/07/17 19:58 Lab Results 01/07/17 01/07/17 01/07/17 Range/Units 19:58 19:58 19:58 WBC 10.4 (4.3-11.1) K/mcL RBC 3.43 L (4.19-5.50) M/mcL Hgb 9.6 L (12.9-16.9) g/dL Hct 29.4 L (37.5-50.1) % MCV 85.7 (83.0-100.0) fL MCH 28.0 (28.0-33.3) pg MCHC 32.7 (31.6-35.5) g/dL RDW 13.5 (11.5-14.5) % Plt Count 176 (140-400) K/mcL MPV 11.1 (9.4-12.4) fL Immature Gran % 0.6 (0-4) % Seg Neutrophils % 77.2 % Lymphocytes % 11.8 % Monocytes % 10.0 % Eosinophils % 0.1 % Basophils % 0.3 % Neutrophils # 8.1 (1.6-8.9) K/mcL Lymphocytes # 1.2 (0.6-4.6) K/mcL Monocytes # 1.0 (0.0-1.3) K/mcL Eosinophils # 0.0 (0.0-0.6) K/mcL Basophils # 0.0 (0.0-0.2) K/mcL PT 14.4 H (9.4-12.1) Seconds INR 1.3 APTT 32.5 (26.0-36.0) Seconds Sodium 140 (136-145) mEq/L Potassium 4.8 H (3.5-4.5) mEq/L Chloride 110 H (98-109) mEq/L Carbon Dioxide 23 (19-29) mEq/L BUN 39 H (8-26) mg/dL Creatinine 2.19 H (0.72-1.25) mg/dL Est GFR ( Amer) 35 L (> 60) Est GFR (Non-Af Amer) 29 L (> 60) BUN/Creatinine Ratio 18 (6-26) Glucose 160 H (70-99) mg/dL Calculated Osmolality 303 H (280-300) Calcium 9.3 (8.6-10.8) mg/dL Magnesium 1.4 L (1.6-2.6) mg/dL Troponin I (0-0.03) ng/mL B-Natriuretic Peptide (0-100) pg/mL TSH 1.897 (0.350-4.840) mcIU/mL 01/07/17 01/07/17 Range/Units 19:58 21:07 WBC (4.3-11.1) K/mcL RBC (4.19-5.50) M/mcL Hgb (12.9-16.9) g/dL Hct (37.5-50.1) % MCV (83.0-100.0) fL MCH (28.0-33.3) pg MCHC (31.6-35.5) g/dL RDW (11.5-14.5) % Plt Count (140-400) K/mcL MPV (9.4-12.4) fL Immature Gran % (0-4) % Seg Neutrophils % % Lymphocytes % % Monocytes % % Eosinophils % % Basophils % % Neutrophils # (1.6-8.9) K/mcL Lymphocytes # (0.6-4.6) K/mcL Monocytes # (0.0-1.3) K/mcL Eosinophils # (0.0-0.6) K/mcL Basophils # (0.0-0.2) K/mcL PT (9.4-12.1) Seconds INR APTT (26.0-36.0) Seconds Sodium (136-145) mEq/L Potassium (3.5-4.5) mEq/L Chloride (98-109) mEq/L Carbon Dioxide (19-29) mEq/L BUN (8-26) mg/dL Creatinine (0.72-1.25) mg/dL Est GFR ( Amer) (> 60) Est GFR (Non-Af Amer) (> 60) BUN/Creatinine Ratio (6-26) Glucose (70-99) mg/dL Calculated Osmolality (280-300) Calcium (8.6-10.8) mg/dL Magnesium (1.6-2.6) mg/dL Troponin I 0.03 (0-0.03) ng/mL B-Natriuretic Peptide 643 H (0-100) pg/mL TSH (0.350-4.840) mcIU/mL - Radiology Data Radiology results reviewed: Yes I reviewed the patient's radiology results. Chest x-ray stable for acute pathology - EKG Data EKG attestation: Yes I reviewed and interpreted this EKG. Rhythm: A. flutter [place]/QRS: normal When compared to previous EKG there are: no significant changes Interpretation: no acute changes, unchanged when compared to prior tracing (date )
[2017-01-07] MEDS ORDERED: Magnesium Sulfate 1 GM in D5% in Water 100 ML IVPB ONE (22:04)
[2017-01-07] MEDS ORDERED: Naloxone 0.4 MG/ML INJ IVP PRN (23:24)
[2017-01-07] MEDS ORDERED: *HR* Dextrose 50 % in Water (Syg) 50 ML SYRINGE IVP PRN (23:26)
[2017-01-07] MEDS ORDERED: Dextrose Gel 15 GM PO PRN ×2 (23:26)
[2017-01-07] MEDS ORDERED: D5% in Water 1,000 ML IVC PRN (23:26)
--- NOTE | 2017-01-07 23:49 | Internal Med History&Physical ---
<Rudi Landon - Last Filed: 01/08/17 00:13> Date of Encounter: 01/08/17 Time of Encounter: 23:46 Assessment and Plan (1) CHF (congestive heart failure) Current visit: Yes Status: Acute 81 M cc of sob hx of Diastolic CHF, afib acute onset in concordance with palpitations reprots orthopne, exertional dyspnea b/l basilar lung crackles 1+ pitting pedal edema BNP 643 CXR small right pleural effusion Echo 02/2016 with LVEF 60-65%, mild mitral regurgitation, mild tricuspid regurgitation, moderate-severe pulmonary hypertension, all wall segements with normal motion. acute diastolic chf exacerbation 2nd to aflutter Plan: IV lasix strict I/O continue losartan fluid restricted cardiac ada diet Qualifiers: Congestive heart failure type: diastolic Congestive heart failure chronicity: acute on chronic Qualified Code(s): I50.33 - Acute on chronic diastolic (congestive) heart failure (2) Atrial flutter, paroxysmal Current visit: Yes Status: Chronic presented in atrial flutter now converted to sinus rhythm with HR 80s. on metoprolol at home and aspirin for anticoagulation [id number] score 6 as per EMR records patient refused to start anticoagulation. He has anemia 2nd to unknown etiology and needs GI workup but did not want to undergo GI work up before starting anticoagulation. He understands his increased risk for stroke . 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 stable plan: continue to monitor as may worsen with lasix administration strict I/O avoid nephrotoxins and NSAIDS (4) Diabetes mellitus Current visit: Yes Status: Chronic controlled on metformin at home last HgA1c is 6.1 plan: cardiac ada diet Low dose SSI ACHS Qualifiers: Diabetes mellitus type: type 2 Diabetes mellitus complication status: with kidney complications Diabetes mellitus complication detail: with chronic kidney disease Diabetes mellitus superintendent container terminal insulin use: without superintendent container terminal use Chronic kidney disease stage: stage 3 (moderate) Qualified Code(s): E11.22 - Type 2 diabetes mellitus with diabetic chronic kidney disease; N18.3 - Chronic kidney disease, stage 3 (moderate) (5) Anemia Current visit: Yes Status: Chronic unclear 2nd to what etiology previous Iron panel: Iron 69 % sat: 23 transferrin 211 B12 and folate WNL not on anticoagulation for afib according to previous records patient refused GI workup: stating " Im old enough to " patient still wants to be full code Plan: continue home b12, iron, folate monitor h/h Qualifiers: Anemia type: unspecified type Qualified Code(s): D64.9 - Anemia, unspecified (6) CAD (coronary artery disease) Current visit: Yes Status: Chronic hx of CAD CABG in 1996 s/p PCI x2 angioplasty troponin wnl denies chest pain EKG shows a flutter but by the time i saw patient he had converted to sinus rhythm with rate in 80s plan: continue aspirin, statin, bblocker Qualifiers: Coronary Disease-Associated Artery/Lesion type: [place] artery [place] vs. transplanted heart: [place] heart Associated angina: without angina Qualified Code(s): I25.10 - Atherosclerotic heart disease of [place] coronary artery without angina pectoris (7) Hypertension Current visit: Yes Status: Chronic not controlled. states BP at home in systolic 170s systolic currently bp in 160s on amlodpine, valsartan and metoprolol at home. plan: patient will be started on cardizem for uncontrolled aflutter if HTN remain uncontrolled after this may increase amlodipine to 10mg daily Qualifiers: Hypertension type: essential hypertension Qualified Code(s): I10 - Essential (primary) hypertension (8) DVT prophylaxis Current visit: Yes Status: Acute heparin SQ Internal Medicine - H&P: HPI Chief complaint: sob Admitted From: Home Plans for Post Hospital Care: Home History of present illness: Mr. Romeo is a 81 year old male cc of sob. Patient states he has hx of afib and started having palpitations along with acute onset of shortness of breath. His palpitations started 2 days ago and lasted until presentation to the emergency room. Patient states shortness of breath has been worse with laying down. He has used to posterior proximal vessel. Shortness of breath is also worse with exertion and he can barely walk 20 feet. He also reports mild lower extremity edema. Patient takes metoprolol versus atrial fibrillation is compliant with medication. Patient is not on anticoagulation but takes aspirin. Reviewing electronic medical records in the past patient has refused to be on anticoagulation and refuses to workup his anemia by getting his GI evaluation. Past Med Surg Social Fam HX - Past Medical History Medical history: atrial fibrillation, coronary artery disease, diabetes, hyperlipidemia, hypertension, kidney stones, renal disease Psychiatric history: no psych history - Past Surgical History Surgical History: coronary bypass (CABG), orthopedic, other - Social History Smoking Status: Never smoker Alcohol use: none Drug use: none - Family History Mother Living Status: Hx Family Endocrine Disorder: Yes (Diabetes) Brother Hx Family Cardiac Disorders: Yes (5 open heart surgeries) Internal Medicine - H&P: Meds Losartan Potassium [Cozaar] 100 mg PO DAILY 03/03/16 [History] Metoprolol [Lopressor] 100 mg PO BID 03/03/16 [History] Metformin HCl [Metformin HCl ER] 1,000 mg PO BIDWM 03/04/16 [History] amLODIPine [Norvasc] 5 mg PO DAILY 03/04/16 [History] Atorvastatin [Lipitor] 40 mg PO HS #30 tablet 03/07/16 [Rx] Aspirin [Lo-Dose Aspirin EC] 81 mg PO DAILY 01/07/17 [History] Cyanocobalamin (Vitamin B-12) [Vitamin B12] 1,000 mcg PO QPM 01/07/17 [History] Ferrous Sulfate [Iron] 325 mg PO QPM 01/07/17 [History] Folic Acid 0.4 mg PO QAM 01/07/17 [History] Mv, Min #36/Iron,Carbonyl/FA [Geritol Complete Tablet] 1 tab PO DAILY 01/07/17 [ History] 3 Allergy/AdvReac Type Severity Reaction Status Date / Time No Known Allergies Allergy Verified 10/02/16 18:23 All Systems PM: A 10-system review of systems was performed and is negative for pertinent findings except as documented above in the HPI. Review of systems: Constitutional: Denies fever, chills HEENT: Denies headache, vision changes, neck pain, sore throat, rhinorrhea Heart: Denies chest pain. Reports palpitations Lungs: Reports shortness of breath. denies cough, productive sputum Abdomen: Denies abdominal pain nausea vomiting diarrhea Back: Denies back pain Kidney: Denies dysuria, hematuria Skin: Denies rash, open sores Extremities: Denies swelling, pain Neuro: Denies numbness, and tingling - Constitutional Vitals: Temp Pulse Resp BP Pulse Ox 99 F 99 20 158/67 95 01/07/17 23:06 01/07/17 23:06 01/07/17 23:06 01/07/17 23:06 01/07/17 23:06 - Other Additional findings: General: Alert and oriented to place time and situation. Without distress HEENT: Head atraumatic, normocephalic, EOMI, PERRLA, neck nontender to palpation , absent Lymphadenopathy, Moist Mucous Membranes, Heart: Regular rate and rhythm with no murmur Lungs: Clear to auscultation anteriorly. Bilateral basilar crackles Abdomen: Soft nontender, nondistended positive bowel sounds Skin: Warm and dry Extremities: Absent pedal edema, Neuro: Cranial nerves II through XII intact, sensation equal bilaterally, strength upper and lower extremity 5/5, alert oriented 3 Vascular: Pedal and radial pulses 2 out of 4 Internal Med - H&P Results - Labs CBC & Chem 7: 01/07/17 19:58 01/07/17 19:58 <Dennis Etienne - Last Filed: 01/08/17 04:43> Date of Encounter: 01/08/17 Internal Medicine - H&P: HPI History of present illness: Mr. Romeo is a 81 year old male All Systems PM: A 10-system review of systems was performed and is negative for pertinent findings except as documented above in the HPI. - Constitutional Vitals: Temp Pulse Resp BP Pulse Ox 99 F 99 20 158/67 95 01/07/17 23:06 01/07/17 23:06 01/07/17 23:06 01/07/17 23:06 01/07/17 23:06 Internal Med - H&P Results - Labs CBC & Chem 7: 01/07/17 19:58 01/07/17 19:58 - Attending Attestation I examined this patient and my medical decision-making was reviewed with the Resident Physician, Dr. Marky Kimball. I agree with the documented findings, disposition and treatment plan as described except to the extent set forth below. I have independently obtained history and examined the patient and my findings are summarized below: Patient presented to the hospital for evaluation of shortness of breath. He was found to be in atrial flutter with rapid ventricular response Currently the patient reports worsening shortness of breath especially when lying flat in bed., Denies associated chest pain or fever. On exam he is in no acute distress speaking in full sentences. Heart is irregular S1 and S2. Lungs with fine crackles. Extremities with trace edema. Plan: Start IV Lasix. Obtain echocardiogram. Monitor on telemetry. Daily weights. Strict I's and O's. Fluid restriction. Cardiology consult.
[2017-01-08] MEDS: Diltiazem SR (12hr) 60 MG CAPSULE PO SCH ×3 (04:27→21:19)
[2017-01-08] MEDS: Furosemide 40 MG/4 ML VIAL IVP SCH ×4 (04:27→21:19)
[2017-01-08] MEDS: *HR* Heparin 5,000 UNIT/ML VIAL SQ SCH ×3 (06:37→21:22)
[2017-01-08 06:53] LABS: Basophils % 0.3 %; Eosinophils % 0.1 %; Hematocrit 26.6 % (37.5-50.1); Immature Platelets 5.5 % (1.1-6.1); Lymphocytes # 0.9 K/mcL (0.6-4.6); Lymphocytes % 10.2 %; Mean Corpuscular HGB Conc 33.8 g/dL (31.6-35.5); Mean Corpuscular Hemoglobin 28.8 pg (28.0-33.3); Mean Platelet Volume 11.2 fL (9.4-12.4); Monocytes # 0.7 K/mcL (0.0-1.3); Monocytes % 7.5 %; Neutrophils # 7.2 K/mcL (1.6-8.9); Platelet Count 170 K/mcL (140-400); Red Blood Count 3.13 M/mcL (4.19-5.50); Red Cell Distribution Width 13.6 % (11.5-14.5); Segmented Neutrophils % 80.9 %
[2017-01-08 07:06] LABS: Calcium 9.1 mg/dL (8.6-10.8); Magnesium 1.4 mg/dL (1.6-2.6); Potassium 4.6 mEq/L (3.5-4.5)
[2017-01-08] MEDS ORDERED: Insulin LISPRO 300 UNITS/3 ML VIAL SQ SCH ×2 (08:00→21:00)
[2017-01-08] MEDS ORDERED: amLODIPine 5 MG TABLET PO SCH ×2 (09:00)
[2017-01-08] MEDS ORDERED: Furosemide 40 MG/4 ML VIAL IVP SCH (09:00)
[2017-01-08] MEDS: Insulin LISPRO 300 UNITS/3 ML VIAL SQ SCH ×3 (09:08→18:11)
[2017-01-08] MEDS: Metoprolol 100 MG TABLET PO SCH ×2 (09:09→21:19)
[2017-01-08] MEDS: amLODIPine 5 MG TABLET PO SCH (09:09)
[2017-01-08] MEDS: Aspirin Enteric Coated 81 MG Tablet PO SCH (09:09)
[2017-01-08] MEDS ORDERED: Magnesium Sulfate 2 GM in D5% in Water 100 ML IVPB ONE (10:15)
--- NOTE | 2017-01-08 14:54 | Electrocardiograph Report ---
[place] [id number] Test Date: 2017-01-07 Pat Name: Juan Romeo Department: 104 Room: 2NE28 Gender: M Aoc Director Intelligence Officer: KATERINE : 1935 Requested By: Fidel Gardner Order Number: [id number] Reading MD: Yo Ma MD Measurements Intervals [place] Rate: 74 P: HI: 0 QRS: 42 QRSD: 102 T: 53 QT: 369 QTc: 396 Interpretive Statements ATRIAL FLUTTER with controlled response Electronically Signed On 01-08-2017 14:52:52 EDT by Yo Ma MD
--- NOTE | 2017-01-08 18:47 | Internal Med Progress Note ---
Date of Encounter: 01/08/17 Time of Encounter: 18:44 - Assessment and plan (1) CHF (congestive heart failure) Current Visit: Yes Status: Acute Qualifiers: Congestive heart failure type: diastolic Congestive heart failure chronicity: acute on chronic Qualified Code(s): I50.33 - Acute on chronic diastolic (congestive) heart failure (2) Atrial fibrillation Current Visit: Yes Status: Acute Qualifiers: Atrial fibrillation type: chronic Qualified Code(s): I48.2 - Chronic atrial fibrillation (3) Chronic renal insufficiency Current Visit: Yes Status: Acute Qualifiers: Chronic kidney disease stage: unspecified stage Qualified Code(s): N18.9 - Chronic kidney disease, unspecified (4) Diabetes mellitus Current Visit: Yes Status: Chronic Qualifiers: Diabetes mellitus type: type 2 Diabetes mellitus complication status: with kidney complications Diabetes mellitus complication detail: with chronic kidney disease Diabetes mellitus superintendent container terminal insulin use: without mcfp use Chronic kidney disease stage: stage 3 (moderate) Qualified Code(s): E11.22 - Type 2 diabetes mellitus with diabetic chronic kidney disease; N18.3 - Chronic kidney disease, stage 3 (moderate) (5) Hypertension Current Visit: Yes Status: Chronic Qualifiers: Hypertension type: essential hypertension Qualified Code(s): I10 - Essential (primary) hypertension (6) DVT prophylaxis Current Visit: Yes Status: Acute - Subjective Interval history: Mr. Juan Romeo is an 81-year-old patient admitted for uncontrolled atrial fibrillation contributing to acute diastolic congestive heart failure. Patient has been experiencing dyspnea with bilateral edema. Echo 02/2016 with LVEF 60- 65%, mild mitral regurgitation, mild tricuspid regurgitation, moderate-severe pulmonary hypertension, all wall segements with normal motion. He also has CKD stage III with creatinine around 2. I did not see much diuresis therefore I will intensify and increase Lasix dosing while keeping an eye on creatinine and electrolytes which will be monitored daily. He has diabetes for which he will get Accu-Chek 4 times a day with sliding scale coverage and daily monitoring. He also has hypertension which will be monitored daily while home medications will be started. - Constitutional Vitals: Temp Pulse Resp BP Pulse Ox 97.9 F 77 20 133/82 97 01/08/17 15:17 01/08/17 18:33 01/08/17 18:33 01/08/17 18:33 01/08/17 18:33 - Head Head exam: Present: atraumatic, normocephalic - Eye Eye exam: Present: PERRL, conjuntiva pink, sclera anicteric Pupils: Present: PERRL - Neck Neck exam general surgery: Present: supple, trachea midline. Absent: lymphadenopathy - Respiratory Respiratory exam: Present: CTAB. Absent: accessory muscle use, rales, rhonchi, wheezes - Cardiovascular Cardiovascular exam: Present: RRR, +S1, +S2. Absent: diastolic murmur, gallop, rubs, systolic murmur - GI/Abdominal GI/Abdominal exam: Present: normal bowel sounds, soft, no peritoneal signs. Absent: distended, tenderness - Extremities Exam Extremities exam: Present: warm, radial pulses palpable and symmetrical. Absent : calf tenderness, cyanotic, pedal edema - Neurological Exam Neurological exam: Present: CN II-XII intact, oriented X3, no focal deficits. Absent: pronater drift, facial droop, speech deficit - Skin Skin exam: Present: dry, intact Internal Medicine: Result - Labs CBC & Chem 7: 01/08/17 06:32 01/08/17 06:32 Labs: Short CBC 01/08/17 Range/Units 06:32 WBC 8.9 (4.3-11.1) K/mcL Hgb 9.0 L (12.9-16.9) g/dL Hct 26.6 L (37.5-50.1) % Plt Count 170 (140-400) K/mcL Neutrophils # 7.2 (1.6-8.9) K/mcL BMP 01/08/17 06:32 Sodium 141 Potassium 4.6 H Chloride 111 H Carbon Dioxide 23 BUN 36 H Creatinine 2.05 H Glucose 159 H Calcium 9.1 - ABG Interpretation ABG results: PT/INR, D-dimer PT 14.4 Seconds (9.4-12.1) H 01/07/17 19:58 Consult Discharge Plan - Plan Referrals: Jamie Glynn MD [Primary Care Provider] - 01/14/17 11:00 am
[2017-01-08] MEDS ORDERED: Insulin DETEMIR 100 UNIT/ML X5UNITS SQ SCH (21:00)
[2017-01-08] MEDS: Magnesium Oxide 400 MG TABLET PO SCH (21:19)
[2017-01-09 05:28] LABS: Albumin/Globulin Ratio 0.9 (1.1-2.2); Calcium 9.2 mg/dL (8.6-10.8); Globulin 3.4 g/dL (2.4-3.5); Potassium 4.4 mEq/L (3.5-4.5); Total Protein 6.4 g/dL (6.0-8.3)
[2017-01-09] MEDS: *HR* Heparin 5,000 UNIT/ML VIAL SQ SCH (06:15)
[2017-01-09 06:34] LABS: Bilirubin,Total 0.8 mg/dL (0.2-1.2)
[2017-01-09 07:26] VITALS: BP 112/48
[2017-01-09] MEDS: Aspirin Enteric Coated 81 MG Tablet PO SCH (10:51)
[2017-01-09] MEDS: Magnesium Oxide 400 MG TABLET PO SCH (10:51)
[2017-01-09] MEDS: Metoprolol 100 MG TABLET PO SCH (10:51)
[2017-01-09] MEDS: Furosemide 40 MG/4 ML VIAL IVP SCH (10:52)
[2017-01-09] MEDS: amLODIPine 5 MG TABLET PO SCH (10:52)
[2017-01-09] MEDS: Diltiazem SR (12hr) 60 MG CAPSULE PO SCH (10:53)
[2017-01-09] MEDS: Insulin LISPRO 300 UNITS/3 ML VIAL SQ SCH ×2 (11:19→11:25)
--- NOTE | 2017-01-09 15:38 | Discharge Summary ---
Date of Encounter: 01/09/17 Time of Encounter: 15:33 - Discharge Diagnosis (1) CHF (congestive heart failure) Priority: Primary Status: Acute Qualifiers: Congestive heart failure type: diastolic Congestive heart failure chronicity: acute on chronic Qualified Code(s): I50.33 - Acute on chronic diastolic (congestive) heart failure (2) Atrial fibrillation Priority: Primary Status: Acute Qualifiers: Atrial fibrillation type: chronic Qualified Code(s): I48.2 - Chronic atrial fibrillation (3) Chronic renal insufficiency Priority: Secondary Status: Acute Qualifiers: Chronic kidney disease stage: unspecified stage Qualified Code(s): N18.9 - Chronic kidney disease, unspecified (4) Diabetes mellitus Priority: Secondary Status: Chronic Qualifiers: Diabetes mellitus type: type 2 Diabetes mellitus complication status: with kidney complications Diabetes mellitus complication detail: with chronic kidney disease Diabetes mellitus correction insulin use: without correction use Chronic kidney disease stage: stage 3 (moderate) Qualified Code(s): E11.22 - Type 2 diabetes mellitus with diabetic chronic kidney disease; N18.3 - Chronic kidney disease, stage 3 (moderate) (5) Hypertension Priority: Secondary Status: Chronic Qualifiers: Hypertension type: essential hypertension Qualified Code(s): I10 - Essential (primary) hypertension (6) DVT prophylaxis Priority: Secondary Status: Acute - Discharge Medications Prescriptions: Diltiazem SR (12hr) [Cardizem SR] 60 mg PO BID #120 Home Medications: Losartan Potassium [Cozaar] 100 mg PO DAILY 03/03/16 [History] Metoprolol [Lopressor] 100 mg PO BID 03/03/16 [History] Metformin HCl [Metformin HCl ER] 1,000 mg PO BIDWM 03/04/16 [History] amLODIPine [Norvasc] 5 mg PO DAILY 03/04/16 [History] Atorvastatin [Lipitor] 40 mg PO HS #30 tablet 03/07/16 [Rx] Aspirin [Lo-Dose Aspirin EC] 81 mg PO DAILY 01/07/17 [History] Cyanocobalamin (Vitamin B-12) [Vitamin B12] 1,000 mcg PO QPM 01/07/17 [History] Ferrous Sulfate [Iron] 325 mg PO QPM 01/07/17 [History] Folic Acid 0.4 mg PO QAM 01/07/17 [History] Mv, Min #36/Iron,Carbonyl/FA [Geritol Complete Tablet] 1 tab PO DAILY 01/07/17 [ History] Diltiazem SR (12hr) [Cardizem SR] 60 mg PO BID #120 01/09/17 [Rx] Allergies/Adverse Reactions: 3 Allergy/AdvReac Type Severity Reaction Status Date / Time No Known Allergies Allergy Verified 10/02/16 18:23 Date of admission: 01/08/17 05:35 Primary care physician: Jamie Glynn, Discharging clinician: Moisés Smith Anticipated date of discharge: 01/09/17 - Patient Status Disposition: Home, Self-Care Condition: Good Overall status at discharge: patient is progressing back to baseline - Discharge Instructions Follow Up With: Jamie Glynn MD [Primary Care Provider] - 01/14/17 11:00 am - Diet and Activity Activity: resume usual activities as tolerated Diet: advance to your usual diet Hospital course: Mr. Romeo is a 81 year old male - Time Spent with Patient Total time spent providing and/or coordinating discharge services: - Constitutional Vitals: Temp Pulse Resp BP Pulse Ox 97.7 F 75 21 112/48 95 01/09/17 07:00 01/09/17 07:00 01/09/17 07:00 01/09/17 07:00 01/09/17 07:00
== END 2017-01-09 16:50 | disposition home or self-care (01) | DRG 308 ==
LOC: 2NENU 17:42 → EMEROO 17:42 → 2NENU 22:49
PROVIDERS: ADMIT Internal Medicine Hematology & Oncology; ATTEND Internal Medicine